=== PATIENT | male | born 1960 | race Caucasian/White ===

== ENCOUNTER 2020-11-02 08:08 | Day surgery (SDC) | payer BC ==
[2020-11-02] VITALS (9 sets, daily range): BP systolic 118–137; BP diastolic 64–89
[~2020-11-02] VITALS: Ht 170.2 cm; Wt 76.6 kg
[2020-11-02] MEDS ORDERED: iohexol 350 MG/ML 50ML vial IV ONE (08:26)
[2020-11-02] MEDS ORDERED: LIDOcaine 1% (10mg/ml)w/preservative injection 20ml MDV ONE (08:26)
[2020-11-02] MEDS ORDERED: fentaNYL/PF 50MCG/1 ML 2ML syringe ONE (08:27)
[2020-11-02] MEDS ORDERED: iohexol 350MG/ML 100ml bottle IV ONE (08:27)
[2020-11-02] MEDS ORDERED: midazolam 2 mg/2 ml injection ONE ×2 (08:27→09:21)
[2020-11-02] MEDS ORDERED: ATOR20TA PO (08:29)
[2020-11-02] MEDS ORDERED: METF-950 PO (08:29)
[2020-11-02] MEDS ORDERED: LISI10TA27 PO (08:29)
[2020-11-02] MEDS ORDERED: MULT-1085 PO (08:29)
[2020-11-02] MEDS ORDERED: diphenhydrAMINE 25mg capsule PO PRN (08:35)
[2020-11-02] MEDS ORDERED: normal saline 1,000 ML IV SCH (08:35)
[2020-11-02 08:39] LABS: BASOPHILS # (AUTO) 0.1 X10'3 (0-0.2); BASOPHILS % (AUTO) 0.7 % (0-1); EOSINOPHILS # (AUTO) 0.2 X10'3 (0-0.9); EOSINOPHILS % (AUTO) 2.7 % (0-6); HEMATOCRIT 45.7 % (42.0-52.0); HEMOGLOBIN 15.7 g/dl (14.0-17.9); LYMPHOCYTES # (AUTO) 1.1 X10'3 (1.1-4.8); LYMPHOCYTES % (AUTO) 14.4 % (21-51); MEAN CORPUSCULAR HGB CONC 34.3 g/dL (33.0-36.5); MEAN CORPUSCULAR VOLUME 93.2 FL (78-98); MEAN PLATELET VOLUME 8.1 FL (7.4-10.4); MONOCYTES # (AUTO) 0.6 X10'3 (0-0.9); MONOCYTES % (AUTO) 7.7 % (2-12); NEUTROPHILS # (AUTO) 5.5 X10'3 (1.8-7.7); NEUTROPHILS % (AUTO) 74.5 % (42-75); PLATELET COUNT 217 X10'3 (140-440); RED CELL DISTRIBUTION WIDTH 14.9 % (11.5-14.5); WHITE BLOOD COUNT 7.4 X10'3 (4.5-11.0)
[2020-11-02 08:48] LABS: ANION GAP 6 (8-16); BLOOD UREA NITROGEN 22 MG/DL (7-18); CALCIUM 9.2 MG/DL (8.5-10.1); CHLORIDE 105 MMOL/L (99-107); GLUCOSE 104 MG/DL (70-104); MAGNESIUM 2.2 MG/DL (1.5-2.4); SODIUM 136 MMOL/L (135-145); TOTAL CARBON DIOXIDE 25.4 MMOL/L (24-32); eGFR 76 ML/MIN
[2020-11-02] MEDS ORDERED: heparin 1,000unit/ml 10ml vial 10 ML ONE (09:47)
[2020-11-02] MEDS ORDERED: HYDROcodone/acetaminophen 10/325mg tab PO PRN (10:45)
[2020-11-02] MEDS ORDERED: proCHLORperazine 10 MG/2 ml inj IV PRN (10:45)
[2020-11-02] MEDS ORDERED: HYDROcodone/acetaminophen 5mg/325mg tablet PO PRN (10:45)
[2020-11-02] MEDS ORDERED: ondansetron/PF 4mg/2ml inj IV PRN (10:45)
== END 2020-11-02 16:20 | disposition home or self-care (01) ==
LOC: SSTAY O 08:08
PROVIDERS: ATTEND Internal Medicine Cardiovascular Disease
DX: R07.9 Chest pain, unspecified (principal); I35.0 Nonrheumatic aortic (valve) stenosis; I27.20 Pulmonary hypertension, unspecified; I10 Essential (primary) hypertension; E78.5 Hyperlipidemia, unspecified; E11.9 Type 2 diabetes mellitus without complications; F17.220 Nicotine dependence, chewing tobacco, uncomplicated; Z79.899 Other long term (current) drug therapy; Z79.84 Long term (current) use of oral hypoglycemic drugs
CPT/HCPCS: 36415; 80048; 82948; 83735; 85025; 85610; 93005; 93460; 99152; 99153; C1760; C1769; C1894; J1644; J2001; J2250; J3010; J7030; Q0163; Q9967; A4620; C1751

== ENCOUNTER 2020-11-30 09:57 | Outpatient (CLI) | payer BC ==
[~2020-11-30 09:57] MED LIST: ATOR20TA PO; IODIXANOL 320 MG/ML 150ml INFUS..BTL IV ONE; LISI10TA27 PO; METF-950 PO; MULT-1085 PO
[2020-11-30 10:33] LABS: BASOPHILS # (AUTO) 0.1 X10'3 (0-0.2); EOSINOPHILS # (AUTO) 0.2 X10'3 (0-0.9); EOSINOPHILS % (AUTO) 3.2 % (0-6); HEMOGLOBIN 15.8 g/dl (14.0-17.9); LYMPHOCYTES % (AUTO) 14.9 % (21-51); MEAN CORPUSCULAR HGB CONC 34.3 g/dL (33.0-36.5); MEAN CORPUSCULAR VOLUME 93.4 FL (78-98); MEAN PLATELET VOLUME 8.2 FL (7.4-10.4); MONOCYTES # (AUTO) 0.6 X10'3 (0-0.9); MONOCYTES % (AUTO) 8.6 % (2-12); NEUTROPHILS # (AUTO) 5.1 X10'3 (1.8-7.7); NEUTROPHILS % (AUTO) 72.3 % (42-75); PLATELET COUNT 221 X10'3 (140-440); RED BLOOD COUNT 4.92 X10'6 (4.70-6.10)
[2020-11-30 10:45] LABS: PARTIAL THROMBOPLASTIN TIME 27 SECONDS (22-32)
[2020-11-30 10:46] LABS: ALANINE AMINOTRANSFERASE 33 U/L (12-78); ALKALINE PHOSPHATASE 67 IU/L (46-116); ANION GAP 6 (8-16); ASPARTATE AMINO TRANSFERASE 29 U/L (10-37); BILIRUBIN,TOTAL 0.9 MG/DL (0.1-1.0); BLOOD UREA NITROGEN 19 MG/DL (7-18); BUN/CREATININE RATIO 19.4 (5.4-32.0); CHLORIDE 106 MMOL/L (99-107); CREATININE 0.98 MG/DL (0.60-1.10); GLUCOSE 78 MG/DL (70-104); SODIUM 139 MMOL/L (135-145); TOTAL CARBON DIOXIDE 26.8 MMOL/L (24-32); TOTAL PROTEIN 7.9 G/DL (6.4-8.2); eGFR 78 ML/MIN
== END 2020-11-30 23:59 | disposition home or self-care (01) ==
LOC: RT 09:57
PROVIDERS: ATTEND Internal Medicine Cardiovascular Disease
DX: I51.7 Cardiomegaly (principal); I35.1 Nonrheumatic aortic (valve) insufficiency; Z20.822 Contact with and (suspected) exposure to COVID-19
CPT/HCPCS: 36415; 71275; 74174; 80053; 85025; 85610; 85730; 94010; 94727; 94729; Q9967; U0003

== ENCOUNTER 2020-12-10 13:08 | Outpatient (CLI) | payer BC ==
[~2020-12-10] VITALS: Ht 170.2 cm; Wt 75.4 kg
[~2020-12-10 13:08] MED LIST changes: -IODIXANOL 320 MG/ML 150ml INFUS..BTL IV ONE
[2020-12-10 16:38] VITALS: BP 131/89
--- NOTE | 2020-12-10 16:39 | NUR ---
Patient and his son were in the [facility]AV[facility] clinic today to consult with Dr. Fermin and Dr. Pearson. KCQ12 completed. Walk test completed. Vital signs measured. Patient education reviewed and questions answered.
== END 2020-12-10 23:59 | disposition home or self-care (01) ==
LOC: TAVR 13:08
PROVIDERS: ATTEND Internal Medicine Cardiovascular Disease
DX: I35.0 Nonrheumatic aortic (valve) stenosis (principal); R06.02 Shortness of breath; I65.29 Occlusion and stenosis of unspecified carotid artery

== ENCOUNTER 2020-12-23 08:44 | Inpatient (IN) | payer BC ==
[2020-12-16 10:51] LABS: BASOPHILS % (AUTO) 0.7 % (0-1); EOSINOPHILS # (AUTO) 0.2 X10'3 (0-0.9); EOSINOPHILS % (AUTO) 3.2 % (0-6); LYMPHOCYTES # (AUTO) 1.1 X10'3 (1.1-4.8); LYMPHOCYTES % (AUTO) 17.3 % (21-51); MEAN CORPUSCULAR HEMOGLOBIN 32.7 PG (27.0-31.0); MEAN CORPUSCULAR HGB CONC 34.5 g/dL (33.0-36.5); MEAN CORPUSCULAR VOLUME 94.8 FL (78-98); MEAN PLATELET VOLUME 7.9 FL (7.4-10.4); MONOCYTES # (AUTO) 0.6 X10'3 (0-0.9); MONOCYTES % (AUTO) 10.5 % (2-12); NEUTROPHILS # (AUTO) 4.2 X10'3 (1.8-7.7); NEUTROPHILS % (AUTO) 68.3 % (42-75); PRE OP HEMATOCRIT 45.8 % (42.0-52.0); PRE OP HEMOGLOBIN 15.8 g/dL (14.0-17.9); PRE OP PLATELET COUNT 228 X10'3 (140-440); RED BLOOD COUNT 4.83 X10'6 (4.70-6.10); RED CELL DISTRIBUTION WIDTH 13.2 % (11.5-14.5)
[2020-12-16 10:51] LABS: CLARITY,URINE CLEAR (Clear); COLOR,URINE YELLOW (Yellow); GLUCOSE, URINE 500 mg/dl (Neg); KETONES,URINE NEGATIVE (Neg); LEUKOCYTE ESTERASE ,URINE NEGATIVE (Neg); NITRITES, URINE NEGATIVE (Neg); OCCULT BLOOD,URINE NEGATIVE (Neg); PROTEIN,URINE NEGATIVE (Neg); UROBILINOGEN,URINE 0.2 E.U/dL (0.2-1.0)
[2020-12-16 11:01] LABS: PRE OP PROTIME 10.7 SECONDS (9.0-12.0)
[2020-12-16 11:04] LABS: UA COLLECTION TYPE CLN CATCH MIDSTREAM
[2020-12-16 11:05] LABS: ALBUMIN/GLOBULIN RATIO 1.1 (1.1-1.5); ALKALINE PHOSPHATASE 69 IU/L (46-116); BLOOD UREA NITROGEN 21 MG/DL (7-18); BUN/CREATININE RATIO 21.6 (5.4-32.0); CALCIUM 8.6 MG/DL (8.5-10.1); CHLORIDE 104 MMOL/L (99-107); CREATININE 0.97 MG/DL (0.60-1.10); PRE OP ALT 32 U/L (30-65); PRE OP ANION GAP 11 (8-16); PRE OP AST 31 U/L (10-37); PRE OP BILIRUB, TOTAL 0.8 MG/DL (0.0-1.0); PRE OP GLUCOSE 85 MG/DL (70-104); PRE OP POTASSIUM 4.1 MMOL/L (3.4-5.1); PRE OP SODIUM 139 MMOL/L (135-145); TOTAL CARBON DIOXIDE 24.1 MMOL/L (24-32); TOTAL PROTEIN 7.8 G/DL (6.4-8.2); eGFR 79 ML/MIN
[2020-12-16 13:27] LABS: ABG HCO3 20.9 mmol/L (22.0-26.0); ABG OXYGEN SATURATION 97.8 % (94-97); ABG PCO2 (T) 31.2 mmHg (35.0-48.0); ALLEN'S TEST POSITIVE; FCOHb 0.5 % (0.0-3.9); FMetHb 0.2 % (0.0-1.5); FO2Hb 97.1 % (94-97); TOTAL HEMOGLOBIN 16.2 G/dl (14.0-18.0)
[~2020-12-23] VITALS: Ht 170.2 cm; Wt 75.9 kg
[2020-12-23] VITALS (12 sets, daily range): BP systolic 98–152; BP diastolic 50–86
[~2020-12-23 08:44] MED LIST changes: +LORazepam 2 mg/ml vial IV PRN; -MULT-1085 PO; +ceFAZolin 1000mg inj ONE; +cefazolin/dext.iso 2gm/100ml 100 ML IV ONE; +dextrose 50%-water 50ml dispensing syringe IV PRN; +famotidine 20mg tablet PO ONE; +gabapentin 400mg capsule PO ONE; +insulin regular, human inj. 100 UNITS in normal saline 100ml IV IV SCH; +metoprolol tartrate 12.5mg (1/2 tablet) PO ONE; +mupirocin 2% nasal ointment 1gm UD NS ONE; +ringers solution, lacted 1,000 ML IV SCH; +vancomycin 1,500 MG in NS 300ml IV soln IV ONE
[2020-12-23] MEDS ORDERED: albumin (Human) 5% 250ml BOTTLE IV ONE (12:00)
[2020-12-23] MEDS ORDERED: nitroGLYCERIN in D5W 50mg/250ml (Tridil) infusion IV ONE (12:00)
[2020-12-23] MEDS ORDERED: INSULIN R 100 UNIT in NS 100ML (1 UNIT/1 ML) BAG IV ONE (12:00)
[2020-12-23] MEDS ORDERED: DOPamine/D5W 400mg/250ml bag IV ONE (12:00)
[2020-12-23] MEDS ORDERED: aminocaproic acid 250 MG/1 ML inj. ONE ×2 (12:00→13:00)
[2020-12-23] MEDS ORDERED: niCARDipine in NS 40mg/200ml (0.2mg/ml) IVPB IV ONE (12:00)
[2020-12-23] MEDS ORDERED: protamine sulf. 10mg/ml inj. IV ONE (12:00)
[2020-12-23] MEDS ORDERED: isoflurane 100ml inhalation liquid IH ONE (12:00)
[2020-12-23] MEDS ORDERED: MIDAZolam 1mg/ml 10ml vial ONE (12:03)
[2020-12-23] MEDS ORDERED: SUFENTANIL CITRATE 50 MCG/ML 2ml ampule IV ONE (12:20)
[2020-12-23] MEDS ORDERED: sodium bicarbonate (8.4%) 1 mEq/ml syringe ONE (13:00)
[2020-12-23] MEDS ORDERED: albumin (human) 25% 100 ML IV solution IV ONE (13:00)
[2020-12-23] MEDS ORDERED: magnesium sulf 1 GM/2 ML ONE (13:00)
[2020-12-23] MEDS ORDERED: LIDOcaine 2% (20 mg/ml) 5ml cardiac syringe ONE (13:00)
[2020-12-23] MEDS ORDERED: heparin 1,000 units/ml 10ml inj ONE (13:00)
[2020-12-23] MEDS ORDERED: methylPREDNISolone sod succ 1000mg vial ONE (13:00)
[2020-12-23] MEDS ORDERED: heparin 10,000 units/1 ML INJ ONE (13:00)
[2020-12-23] MEDS ORDERED: potassium Cl 2 mEq/ml inj IV ONE (13:00)
[2020-12-23] MEDS ORDERED: calcium chloride 100 MG/1 ML inj IV ONE (13:00)
[2020-12-23] MEDS ORDERED: rocuronium 10mg/ml inj IV ONE ×3 (13:30→15:39)
[2020-12-23] MEDS ORDERED: LIDOcaine 2% (20mg/ml) 5ml vial ONE (13:30)
[2020-12-23] MEDS ORDERED: 0.9 % SODIUM CHLORIDE 10 ML VIAL ONE ×3 (13:30→15:20)
[2020-12-23] MEDS ORDERED: propofol inj 20 ML IV ONE (13:30)
[2020-12-23] MEDS ORDERED: LIDOcaine 2% 5ml jelly ONE (13:30)
[2020-12-23] MEDS ORDERED: dexamethasone sod phosphate 4mg/ml inj. ONE ×2 (13:30→15:21)
[2020-12-23] MEDS ORDERED: ondansetron/PF 4mg/2ml inj ONE ×2 (13:30→15:21)
[2020-12-23] MEDS ORDERED: midazolam 1 mg/ML 2ml injection IV ONE (13:35)
[2020-12-23] MEDS ORDERED: fentaNYL/PF 50MCG/1 ML 2ML syringe IV PRN (13:35)
[2020-12-23] MEDS ORDERED: midazolam 100mg in NS 100ml 100 ML IV PRN (13:35)
[2020-12-23] MEDS ORDERED: FENTANYL-0.9 % NACL/PF 100 ML IV PRN (13:35)
[2020-12-23 13:48] LABS: ABG BASE EXCESS 1.3 mmol/L (-2.0-2.0); ABG OXYGEN SATURATION 99.4 % (94-97); ABG PCO2 41.9 mmHg (35.0-48.0); ABG PO2 246.7 mmHg (75.0-100.0); CL (ABG) 105 mmol/L (98-110); FCOHb 0.3 % (0.0-3.9); FMetHb 0.3 % (0.0-1.5); FO2Hb 98.8 % (94-97); GLUCOSE (ABG) 98 mg/dl (70-105); IONIZED CA (ABG) 0.97 mmol/L (1.10-1.43); K (ABG) 4.8 mmol/L (3.5-5.0)
[2020-12-23 14:12] LABS: ABG BASE EXCESS VENOUS -0.1 mmol/L; ABG HCO3 VENOUS 25.9 mmol/L; ABG PCO2 VENOUS 47.6 mmHg; CL (ABG) 104 mmol/L (98-110); FCOHb VENOUS 0.6 %; FHHb VENOUS 12.6 %; FMetHb VENOUS 0.3 %; FO2Hb VENOUS 86.5 %; GLUCOSE (ABG) 103 mg/dl (70-105); IONIZED CA (ABG) 1.01 mmol/L (1.10-1.43); K (ABG) 4.4 mmol/L (3.5-5.0); TOTAL HEMOGLOBIN 11.4 G/dl (14.0-18.0)
[2020-12-23 14:53] LABS: ABG BASE EXCESS 3.2 mmol/L (-2.0-2.0); ABG HCO3 27.3 mmol/L (22.0-26.0); ABG OXYGEN SATURATION 99.3 % (94-97); ABG PCO2 39.3 mmHg (35.0-48.0); ABG PO2 254.9 mmHg (75.0-100.0); CL (ABG) 103 mmol/L (98-110); FCOHb 0.3 % (0.0-3.9); FMetHb 0.3 % (0.0-1.5); FO2Hb 98.7 % (94-97); GLUCOSE (ABG) 106 mg/dl (70-105); IONIZED CA (ABG) 1.19 mmol/L (1.10-1.43); K (ABG) 4.2 mmol/L (3.5-5.0); TOTAL HEMOGLOBIN 10.4 G/dl (14.0-18.0)
[2020-12-23 15:16] LABS: ABG BASE EXCESS 1.2 mmol/L (-2.0-2.0); ABG HCO3 24.3 mmol/L (22.0-26.0); ABG OXYGEN SATURATION 99.5 % (94-97); CL (ABG) 106 mmol/L (98-110); FCOHb 0.3 % (0.0-3.9); FMetHb 0.3 % (0.0-1.5); FO2Hb 98.9 % (94-97); GLUCOSE (ABG) 123 mg/dl (70-105); IONIZED CA (ABG) 1.15 mmol/L (1.10-1.43); K (ABG) 4.2 mmol/L (3.5-5.0); TOTAL HEMOGLOBIN 10.1 G/dl (14.0-18.0)
[2020-12-23] MEDS ORDERED: ceFAZolin 1000mg inj ONE (15:20)
[2020-12-23 15:21] LABS: ACTIVATED CLOTTING TIME 133 SEC (101-148)
[2020-12-23] MEDS ORDERED: albumin (Human) 5% 250ml 250 ML IV ONE (15:27)
[2020-12-23] MEDS ORDERED: ondansetron/PF 4mg/2ml inj IV PRN (16:00)
[2020-12-23] MEDS ORDERED: bisacodyl 10mg suppository rectal RC PRN (16:00)
[2020-12-23] MEDS ORDERED: normal saline 250ml IV soln 250 ML IV PRN (16:00)
[2020-12-23] MEDS ORDERED: magnesium 4gm in 100ml NS 100 ML IV PRN (16:00)
[2020-12-23] MEDS ORDERED: Neutra Phos packet PO PRN (16:00)
[2020-12-23] MEDS ORDERED: potassium CL 10mEq/100ml bag 100 ML IV PRN (16:00)
[2020-12-23] MEDS ORDERED: sodium phosphate inj. 30 MMOL in dextrose 5%-water 250 ML IV PRN (16:00)
[2020-12-23] MEDS ORDERED: niCARDipine-NS 40mg/200ml IVPB 200 ML IV PRN (16:00)
[2020-12-23] MEDS ORDERED: potassium Cl 40MEQ/250ML bag 250 ML IV PRN (16:00)
[2020-12-23] MEDS ORDERED: potassium Cl 40MEQ/1/2NS 520ml 520 ML IV PRN (16:00)
[2020-12-23] MEDS ORDERED: pantoprazole 40 MG vial IV ONE (16:00)
[2020-12-23] MEDS ORDERED: DOPamine 400mg/D5W 250ml 250 ML IV PRN (16:00)
[2020-12-23] MEDS ORDERED: magnesium citrate 296ml oral solution PO PRN (16:00)
[2020-12-23] MEDS ORDERED: Insulin Reg/NS 100units/100mL 100 ML IV SCH (16:00)
[2020-12-23] MEDS ORDERED: sodium phosphate inj. 15 MMOL in dextrose 5%-water 250 ML IV PRN (16:00)
[2020-12-23] MEDS ORDERED: insulin glargine (Lantus) pen - multi-dose SQ PRN (16:00)
[2020-12-23] MEDS ORDERED: morphine 4 MG/ML inj SYRINge IV PRN (16:00)
[2020-12-23] MEDS ORDERED: mineral oil 133ml enema RC PRN (16:00)
[2020-12-23] MEDS ORDERED: magnesium hydroxide 30ml (MOM) UD suspension PO PRN (16:00)
[2020-12-23] MEDS ORDERED: nitroGLYCERIN-Tridil 50MG/D5W 250 ML IV PRN (16:00)
[2020-12-23] MEDS ORDERED: dextrose 50%-water 50ml dispensing syringe IV PRN (16:00)
[2020-12-23] MEDS ORDERED: sodium chloride 0.45% 1,000 ML IV SCH (16:00)
[2020-12-23] MEDS ORDERED: acetaminophen 325mg tablet PO PRN ×2 (16:00)
[2020-12-23] MEDS ORDERED: magnesium 2GM in 50ml NS 50 ML IV PRN (16:00)
[2020-12-23] MEDS ORDERED: metoclopramide 5 mg/ml inj IV PRN (16:00)
[2020-12-23] MEDS ORDERED: potassium Cl 20 mEq SR tablet PO PRN (16:00)
[2020-12-23] MEDS ORDERED: albumin (Human) 5% 250ml 250 ML IV PRN (16:00)
--- NOTE | 2020-12-23 16:15 | NUR ---
Received to room 2007, accompanied by MDs and surgical crew. Placed on ventilator, to site monitor, arterial line and PA line pressure monitored. Chest tubes to suction at 20 cm. Nichols cath to gravity drainage. Dressings are dry and intact. See assessment record. All vasoactive drugs are infusing via central line.
--- NOTE | 2020-12-23 16:20 | NUR ---
Nutrition consult: Pt s/p AVR today. Pt would benefit from protein education once stable. Will continue to follow. Addendum: 12/23/20 at [address] Amended: Links added.
[2020-12-23 16:51] LABS: ABG BASE EXCESS -0.8 mmol/L (-2.0-2.0); ABG HCO3 22.9 mmol/L (22.0-26.0); ABG OXYGEN SATURATION 99.2 % (94-97); ABG PCO2 (T) 33.5 mmHg (35.0-48.0); ABG PO2 (T) 249.7 mmHg (75.0-100.0); FCOHb 0.3 % (0.0-3.9); FMetHb 0.6 % (0.0-1.5); FO2Hb 98.3 % (94-97); PATIENT TEMPERATURE 35.9; RESPIRATORY RATE 12 b/min; TIDAL VOLUME 600 mL; TOTAL HEMOGLOBIN 14.4 G/dl (14.0-18.0)
[2020-12-23] MEDS: ceFAZolin/D5W- 1GM premix 50 ML IV SCH (17:28)
[2020-12-23 17:40] LABS: BASOPHILS % (AUTO) 0.2 % (0-1); EOSINOPHILS # (AUTO) 0.1 X10'3 (0-0.9); EOSINOPHILS % (AUTO) 0.4 % (0-6); HEMATOCRIT 40.5 % (42.0-52.0); HEMOGLOBIN 13.7 g/dl (14.0-17.9); LYMPHOCYTES # (AUTO) 0.7 X10'3 (1.1-4.8); LYMPHOCYTES % (AUTO) 4.9 % (21-51); MEAN CORPUSCULAR HEMOGLOBIN 32.5 PG (27.0-31.0); MEAN CORPUSCULAR HGB CONC 33.9 g/dL (33.0-36.5); MEAN CORPUSCULAR VOLUME 95.9 FL (78-98); MEAN PLATELET VOLUME 8.3 FL (7.4-10.4); MONOCYTES # (AUTO) 0.6 X10'3 (0-0.9); MONOCYTES % (AUTO) 4.2 % (2-12); NEUTROPHILS # (AUTO) 13.6 X10'3 (1.8-7.7); NEUTROPHILS % (AUTO) 90.3 % (42-75); PLATELET COUNT 134 X10'3 (140-440); RED BLOOD COUNT 4.22 X10'6 (4.70-6.10); RED CELL DISTRIBUTION WIDTH 13.5 % (11.5-14.5)
[2020-12-23 17:43] LABS: PARTIAL THROMBOPLASTIN TIME 28 SECONDS (22-32)
[2020-12-23 17:44] LABS: ALANINE AMINOTRANSFERASE 23 U/L (12-78); ALBUMIN 3.7 G/DL (3.4-5.0); ALBUMIN/GLOBULIN RATIO 1.7 (1.1-1.5); ALKALINE PHOSPHATASE 42 IU/L (46-116); ANION GAP 10 (8-16); ASPARTATE AMINO TRANSFERASE 41 U/L (10-37); BILIRUBIN,TOTAL 1.4 MG/DL (0.1-1.0); BLOOD UREA NITROGEN 16 MG/DL (7-18); BUN/CREATININE RATIO 17.6 (5.4-32.0); CALCIUM 7.8 MG/DL (8.5-10.1); CHLORIDE 107 MMOL/L (99-107); CREATININE 0.91 MG/DL (0.60-1.10); GLUCOSE 167 MG/DL (70-104); MAGNESIUM 2.5 MG/DL (1.5-2.4); PHOSPHORUS 2.6 MG/DL (2.3-4.5); POTASSIUM 3.9 MMOL/L (3.5-5.1); SODIUM 141 MMOL/L (135-145); TOTAL PROTEIN 5.9 G/DL (6.4-8.2); eGFR 85 ML/MIN
--- NOTE | 2020-12-23 18:21 | NUR ---
Problems reprioritized. Patient report given, questions answered & plan of care reviewed with Zahraa MANZO.
--- NOTE | 2020-12-23 18:25 | NUR ---
Patient in room CICU 2006. I have received report from Yoandy MANZO and had the opportunity to ask questions and assume patient care.
[2020-12-23] MEDS: morphine 4 MG/ML inj SYRINge IV PRN ×2 (18:42→23:13)
[2020-12-23] MEDS: potassium Cl 20mEq/100mL bag 100 ML IV PRN ×3 (19:56→21:56)
[2020-12-23] MEDS: sennosides/docusate sodium tablet PO SCH (20:59)
[2020-12-23] MEDS: vancomycin/NS 1 GM ADD-VANTAGE 250 ML IV SCH (21:00)
[2020-12-23] MEDS: gabapentin 300mg capsule PO SCH (21:00)
[2020-12-23] MEDS: atorvastatin 10mg tablet PO SCH (21:00)
[2020-12-23] MEDS: mupirocin 2% nasal ointment 1gm UD NS SCH (21:00)
[2020-12-23] MEDS: HYDROcodone/acetaminophen 10/325mg tab PO PRN (22:12)
[2020-12-23 22:28] LABS: BASOPHILS % (AUTO) 0 % (0-1); EOSINOPHILS % (AUTO) 0 % (0-6); HEMATOCRIT 36.3 % (42.0-52.0); HEMOGLOBIN 12.6 g/dl (14.0-17.9); LYMPHOCYTES # (AUTO) 0.4 X10'3 (1.1-4.8); LYMPHOCYTES % (AUTO) 2.8 % (21-51); MEAN CORPUSCULAR HEMOGLOBIN 33.2 PG (27.0-31.0); MEAN CORPUSCULAR HGB CONC 34.6 g/dL (33.0-36.5); MEAN CORPUSCULAR VOLUME 96.1 FL (78-98); MEAN PLATELET VOLUME 8.1 FL (7.4-10.4); MONOCYTES # (AUTO) 0.4 X10'3 (0-0.9); MONOCYTES % (AUTO) 3.1 % (2-12); NEUTROPHILS # (AUTO) 13.1 X10'3 (1.8-7.7); NEUTROPHILS % (AUTO) 94.1 % (42-75); PLATELET COUNT 114 X10'3 (140-440); RED BLOOD COUNT 3.78 X10'6 (4.70-6.10); RED CELL DISTRIBUTION WIDTH 13.4 % (11.5-14.5); WHITE BLOOD COUNT 13.9 X10'3 (4.5-11.0)
[2020-12-23 22:34] LABS: ALBUMIN 3.7 G/DL (3.4-5.0); ANION GAP 10 (8-16); BLOOD UREA NITROGEN 16 MG/DL (7-18); BUN/CREATININE RATIO 14.8 (5.4-32.0); CALCIUM 7.8 MG/DL (8.5-10.1); CHLORIDE 109 MMOL/L (99-107); CREATININE 1.08 MG/DL (0.60-1.10); GLUCOSE 100 MG/DL (70-104); MAGNESIUM 2.5 MG/DL (1.5-2.4); PHOSPHORUS 3.1 MG/DL (2.3-4.5); POTASSIUM 4.9 MMOL/L (3.5-5.1); SODIUM 142 MMOL/L (135-145); eGFR 70 ML/MIN
[2020-12-24] VITALS (24 sets, daily range): BP systolic 103–146; BP diastolic 59–90
[2020-12-24] MEDS: ceFAZolin/D5W- 1GM premix 50 ML IV SCH ×4 (00:10→23:41)
[2020-12-24 00:58] LABS: ABG BASE EXCESS -4.9 mmol/L (-2.0-2.0); ABG HCO3 19.3 mmol/L (22.0-26.0); ABG OXYGEN SATURATION 98.4 % (94-97); ABG PCO2 (T) 33.9 mmHg (35.0-48.0); FCOHb 0.3 % (0.0-3.9); FMetHb 0.3 % (0.0-1.5); FO2Hb 97.8 % (94-97); PATIENT TEMPERATURE 37.3; PEEP 5 cm H2O
--- NOTE | 2020-12-24 01:45 | NUR ---
Pt extubated to 4LPM O2 nasal cannula at 0115, strong cough, no stridor present, and clear breath sounds bilaterally. He was able to say his name and was oriented to where he was. Pt oriented to room, call light, and plan of care. Able to titrate O2 down to 2LPM and pt still sating in the high 90's. Educated pt on sternal precautions and use of heart pillow for splinting. Also educated pt on the importance of deep breathing and coughing. Pt given oral swab with water on it and had a good swallow without coughing. Pt currently sleeping comfortably with the TV on.
[2020-12-24] MEDS: HYDROcodone/acetaminophen 10/325mg tab PO PRN ×5 (03:14→23:41)
[2020-12-24 04:42] LABS: BASOPHILS % (AUTO) 0.1 % (0-1); EOSINOPHILS % (AUTO) 0 % (0-6); HEMOGLOBIN 12.8 g/dl (14.0-17.9); LYMPHOCYTES # (AUTO) 0.4 X10'3 (1.1-4.8); LYMPHOCYTES % (AUTO) 2.9 % (21-51); MEAN CORPUSCULAR HEMOGLOBIN 32.4 PG (27.0-31.0); MEAN CORPUSCULAR HGB CONC 33.6 g/dL (33.0-36.5); MEAN CORPUSCULAR VOLUME 96.3 FL (78-98); MEAN PLATELET VOLUME 8.3 FL (7.4-10.4); MONOCYTES # (AUTO) 0.5 X10'3 (0-0.9); MONOCYTES % (AUTO) 3.3 % (2-12); NEUTROPHILS # (AUTO) 13.1 X10'3 (1.8-7.7); NEUTROPHILS % (AUTO) 93.7 % (42-75); PLATELET COUNT 106 X10'3 (140-440); RED BLOOD COUNT 3.94 X10'6 (4.70-6.10); RED CELL DISTRIBUTION WIDTH 13.6 % (11.5-14.5)
[2020-12-24 04:48] LABS: PARTIAL THROMBOPLASTIN TIME 26 SECONDS (22-32)
[2020-12-24 04:50] LABS: ALANINE AMINOTRANSFERASE 25 U/L (12-78); ALBUMIN 3.7 G/DL (3.4-5.0); ALBUMIN/GLOBULIN RATIO 1.4 (1.1-1.5); ALKALINE PHOSPHATASE 43 IU/L (46-116); ANION GAP 10 (8-16); ASPARTATE AMINO TRANSFERASE 38 U/L (10-37); BILIRUBIN,TOTAL 0.8 MG/DL (0.1-1.0); BLOOD UREA NITROGEN 16 MG/DL (7-18); BUN/CREATININE RATIO 15.5 (5.4-32.0); CALCIUM 8.1 MG/DL (8.5-10.1); CHLORIDE 108 MMOL/L (99-107); CREATININE 1.03 MG/DL (0.60-1.10); GLUCOSE 113 MG/DL (70-104); MAGNESIUM 2.3 MG/DL (1.5-2.4); PHOSPHORUS 4.5 MG/DL (2.3-4.5); POTASSIUM 4.3 MMOL/L (3.5-5.1); SODIUM 142 MMOL/L (135-145); TOTAL CARBON DIOXIDE 24.1 MMOL/L (24-32); TOTAL PROTEIN 6.3 G/DL (6.4-8.2); eGFR 74 ML/MIN
--- NOTE | 2020-12-24 05:45 | NUR ---
pt continuing to do well. Pain well managed with norco. Continuing to educate pt on deep breathing and coughing along with sternal precautions. Pt receptive to education. Pt tolerating PO liquids well, no nausea.
[2020-12-24] MEDS: morphine 4 MG/ML inj SYRINge IV PRN (05:56)
--- NOTE | 2020-12-24 06:34 | NUR ---
Problems reprioritized. Patient report given, questions answered & plan of care reviewed with Yoandy RN & Juan J RN.
[2020-12-24] MEDS ORDERED: lisinopril 10 MG tablet PO ONE (07:25)
[2020-12-24] MEDS: sennosides/docusate sodium tablet PO SCH ×2 (07:59→19:28)
[2020-12-24] MEDS: aspirin 325mg tablet, delayed-release (Ecotrin) PO SCH (07:59)
[2020-12-24] MEDS ORDERED: metoprolol tartrate 12.5mg (1/2 tablet) PO SCH (08:00)
[2020-12-24] MEDS ORDERED: dextrose 50%-water 50ml dispensing syringe IV PRN ×2 (08:05)
[2020-12-24] MEDS ORDERED: dextrose ORAL solution 15 GM/59 ML bottle PO PRN ×2 (08:05)
[2020-12-24] MEDS ORDERED: glucagon, human recombinant 1mg kit SUBCUT PRN (08:05)
[2020-12-24] MEDS: metoprolol tartrate 25mg tablet PO SCH ×2 (08:07→19:28)
[2020-12-24] MEDS: gabapentin 300mg capsule PO SCH ×3 (08:08→20:58)
[2020-12-24] MEDS: mupirocin 2% nasal ointment 1gm UD NS SCH ×2 (08:08→19:29)
[2020-12-24] MEDS: vancomycin/NS 1 GM ADD-VANTAGE 250 ML IV SCH ×2 (08:08→19:28)
[2020-12-24] MEDS: insulin Lispro (HumaLOG) vial - multi-dose SQ SCH ×3 (08:37→19:32)
[2020-12-24 10:23] LABS: MAGNESIUM 2.7 MG/DL (1.5-2.4); POTASSIUM 4.6 MMOL/L (3.5-5.1)
--- NOTE | 2020-12-24 18:25 | NUR ---
Problems reprioritized. Patient report given, questions answered & plan of care reviewed with Simone RN.
--- NOTE | 2020-12-24 19:14 | NUR ---
Patient in room CICU 2007. I have received report from Yoandy and had the opportunity to ask questions and assume patient care.
[2020-12-24] MEDS: atorvastatin 10mg tablet PO SCH (20:57)
[2020-12-24] MEDS ORDERED: insulin glargine (Lantus) pen - multi-dose SQ SCH (21:00)
[2020-12-25] VITALS (16 sets, daily range): BP systolic 95–128; BP diastolic 56–82
[2020-12-25 04:12] LABS: ALBUMIN 3.2 G/DL (3.4-5.0); ANION GAP 6 (8-16); BLOOD UREA NITROGEN 27 MG/DL (7-18); CALCIUM 7.7 MG/DL (8.5-10.1); CHLORIDE 104 MMOL/L (99-107); GLUCOSE 150 MG/DL (70-104); MAGNESIUM 2.4 MG/DL (1.5-2.4); PHOSPHORUS 3.8 MG/DL (2.3-4.5); POTASSIUM 4.6 MMOL/L (3.5-5.1); SODIUM 136 MMOL/L (135-145); TOTAL CARBON DIOXIDE 26.3 MMOL/L (24-32); eGFR 76 ML/MIN
[2020-12-25 04:18] LABS: BASOPHILS % (AUTO) 0.1 % (0-1); EOSINOPHILS % (AUTO) 0 % (0-6); HEMATOCRIT 33.9 % (42.0-52.0); HEMOGLOBIN 11.2 g/dl (14.0-17.9); LYMPHOCYTES # (AUTO) 0.6 X10'3 (1.1-4.8); LYMPHOCYTES % (AUTO) 3.3 % (21-51); MEAN CORPUSCULAR HEMOGLOBIN 32.5 PG (27.0-31.0); MEAN CORPUSCULAR HGB CONC 33.1 g/dL (33.0-36.5); MEAN PLATELET VOLUME 8.9 FL (7.4-10.4); MONOCYTES # (AUTO) 1.3 X10'3 (0-0.9); MONOCYTES % (AUTO) 6.7 % (2-12); NEUTROPHILS # (AUTO) 16.8 X10'3 (1.8-7.7); NEUTROPHILS % (AUTO) 89.9 % (42-75); PLATELET COUNT 95 X10'3 (140-440); RED BLOOD COUNT 3.46 X10'6 (4.70-6.10); RED CELL DISTRIBUTION WIDTH 13.6 % (11.5-14.5); WHITE BLOOD COUNT 18.7 X10'3 (4.5-11.0)
--- NOTE | 2020-12-25 06:12 | NUR ---
Problems reprioritized. Patient report given, questions answered & plan of care reviewed with Yoandy.
[2020-12-25] MEDS ORDERED: potassium CL 10mEq/100ml bag 100 ML IV PRN (06:50)
[2020-12-25] MEDS ORDERED: potassium Cl 40MEQ/1/2NS 520ml 520 ML IV PRN (06:50)
[2020-12-25] MEDS ORDERED: potassium Cl 20mEq/100mL bag 100 ML IV PRN (06:50)
[2020-12-25] MEDS ORDERED: potassium Cl 40MEQ/250ML bag 250 ML IV PRN (06:50)
[2020-12-25] MEDS ORDERED: magnesium 4gm in 100ml NS 100 ML IV PRN (06:50)
[2020-12-25] MEDS ORDERED: potassium Cl 20 mEq SR tablet PO PRN (06:50)
[2020-12-25] MEDS ORDERED: magnesium 2GM in 50ml NS 50 ML IV PRN (06:50)
[2020-12-25] MEDS: mupirocin 2% nasal ointment 1gm UD NS SCH (07:39)
[2020-12-25] MEDS: sennosides/docusate sodium tablet PO SCH ×2 (07:40→20:35)
[2020-12-25] MEDS: gabapentin 300mg capsule PO SCH ×2 (07:40→12:41)
[2020-12-25] MEDS: pantoprazole 40mg Tablet.DR PO SCH (07:40)
[2020-12-25] MEDS: metoprolol tartrate 25mg tablet PO SCH ×2 (07:41→20:00)
[2020-12-25] MEDS: HYDROcodone/acetaminophen 10/325mg tab PO PRN ×3 (07:42→17:17)
[2020-12-25] MEDS: magnesium Cl slow-release 64mg tablet PO SCH ×2 (08:00→20:36)
[2020-12-25] MEDS: potassium Cl 20 mEq SR tablet PO SCH ×2 (08:00→20:00)
[2020-12-25] MEDS: aspirin 325mg tablet, delayed-release (Ecotrin) PO SCH (08:59)
[2020-12-25] MEDS: buPROPion 100mg tablet PO SCH ×3 (08:59→20:42)
[2020-12-25] MEDS: insulin Lispro (HumaLOG) vial - multi-dose SQ SCH ×2 (09:33→13:27)
--- NOTE | 2020-12-25 09:40 | NUR ---
Problems reprioritized. Patient report given, questions answered & plan of care reviewed with Lulu MANZO.
--- NOTE | 2020-12-25 10:20 | NUR ---
received report from Yoandy and Markie. Patient transferred to [facility], ambulatory with Markie and Yoandy. Patient AAOx3 in no acute distress.
--- NOTE | 2020-12-25 18:00 | NUR ---
Patient in room MED 316. I have received report from BRIANNE MANZO and had the opportunity to ask questions and assume patient care.
[2020-12-25] MEDS: atorvastatin 10mg tablet PO SCH (20:39)
[2020-12-25] MEDS ORDERED: lisinopril 10 MG tablet PO SCH (21:00)
--- NOTE | 2020-12-25 21:01 | NUR ---
CALLED ANGELY FOR BP TRENDING FROM 120/110'S SBP TO 90'S SYSTOLIC. HELD BP MEDS. STATED TO DC LISINOPRIL 10 MG, REORDER METOPROLOL 12.5 TO START IN AM Addendum: 12/25/20 at 2104 by Berenice Levine RN ALSO, RESTART LANTUS PER PROTOCOL, NOTICED IT WAS DISCONTINUED.
[2020-12-25] MEDS: insulin glargine (Lantus) pen - multi-dose SQ SCH (21:27)
[2020-12-26] MEDS: HYDROcodone/acetaminophen 10/325mg tab PO PRN ×4 (01:30→20:59)
[2020-12-26 02:00] VITALS: BP 95/67
--- NOTE | 2020-12-26 06:26 | NUR ---
Problems reprioritized. Patient report given, questions answered & plan of care reviewed with Lynn MANZO.
[2020-12-26 07:21] VITALS: BP 100/61
[2020-12-26] MEDS: pantoprazole 40mg Tablet.DR PO SCH (07:30)
[2020-12-26 07:32] LABS: BASOPHILS % (AUTO) 0.2 % (0-1); EOSINOPHILS % (AUTO) 0.3 % (0-6); HEMATOCRIT 33.4 % (42.0-52.0); HEMOGLOBIN 11.4 g/dl (14.0-17.9); LYMPHOCYTES # (AUTO) 0.8 X10'3 (1.1-4.8); LYMPHOCYTES % (AUTO) 6.9 % (21-51); MEAN CORPUSCULAR HEMOGLOBIN 33.1 PG (27.0-31.0); MEAN CORPUSCULAR HGB CONC 34.1 g/dL (33.0-36.5); MEAN CORPUSCULAR VOLUME 97.3 FL (78-98); MEAN PLATELET VOLUME 8.7 FL (7.4-10.4); MONOCYTES # (AUTO) 1.2 X10'3 (0-0.9); MONOCYTES % (AUTO) 10.1 % (2-12); NEUTROPHILS # (AUTO) 9.5 X10'3 (1.8-7.7); NEUTROPHILS % (AUTO) 82.5 % (42-75); PLATELET COUNT 87 X10'3 (140-440); RED BLOOD COUNT 3.44 X10'6 (4.70-6.10); RED CELL DISTRIBUTION WIDTH 13.5 % (11.5-14.5); WHITE BLOOD COUNT 11.5 X10'3 (4.5-11.0)
[2020-12-26 07:37] LABS: ALBUMIN 2.9 G/DL (3.4-5.0); ANION GAP 7 (8-16); BLOOD UREA NITROGEN 27 MG/DL (7-18); BUN/CREATININE RATIO 29.7 (5.4-32.0); CALCIUM 7.5 MG/DL (8.5-10.1); CHLORIDE 100 MMOL/L (99-107); CREATININE 0.91 MG/DL (0.60-1.10); GLUCOSE 104 MG/DL (70-104); POTASSIUM 4.4 MMOL/L (3.5-5.1); SODIUM 133 MMOL/L (135-145); TOTAL CARBON DIOXIDE 25.7 MMOL/L (24-32); eGFR 85 ML/MIN
[2020-12-26] MEDS: metoprolol tartrate 25mg tablet PO SCH ×2 (08:00→20:00)
[2020-12-26] MEDS: potassium Cl 20 mEq SR tablet PO SCH ×2 (08:43→20:00)
[2020-12-26] MEDS: magnesium Cl slow-release 64mg tablet PO SCH ×2 (08:43→20:00)
[2020-12-26] MEDS: aspirin 325mg tablet, delayed-release (Ecotrin) PO SCH (08:43)
[2020-12-26] MEDS: sennosides/docusate sodium tablet PO SCH ×2 (08:43→20:00)
[2020-12-26] MEDS: buPROPion 100mg tablet PO SCH ×3 (08:43→20:58)
[2020-12-26] MEDS ORDERED: ASPI-1071 PO (13:37)
[2020-12-26] MEDS ORDERED: LOP25T PO (13:37)
[2020-12-26] MEDS ORDERED: BUPR100T16 PO (13:37)
[2020-12-26] MEDS ORDERED: HYDR-3972 PO (13:37)
[2020-12-26 15:44] VITALS: BP 95/61
[2020-12-26 18:00] VITALS: BP 102/61
--- NOTE | 2020-12-26 18:15 | NUR ---
Patient in room MED 316. I have received report from Delfino MANZO and had the opportunity to ask questions and assume patient care.
[2020-12-26] MEDS: atorvastatin 10mg tablet PO SCH (20:58)
[2020-12-26] MEDS: insulin glargine (Lantus) pen - multi-dose SQ SCH (21:11)
[2020-12-26 22:00] VITALS: BP 108/65
[2020-12-27] VITALS (10 sets, daily range): BP systolic 105–163; BP diastolic 57–98
[2020-12-27] MEDS: HYDROcodone/acetaminophen 10/325mg tab PO PRN ×2 (04:56→20:07)
--- NOTE | 2020-12-27 06:24 | NUR ---
Patient in room MED 316. I have received report from melissa mccormack and had the opportunity to ask questions and assume patient care.
--- NOTE | 2020-12-27 06:24 | NUR ---
Problems reprioritized. Patient report given, questions answered & plan of care reviewed with Juan MANZO.
[2020-12-27 07:25] LABS: BLOOD UREA NITROGEN 21 MG/DL (7-18); BUN/CREATININE RATIO 23.6 (5.4-32.0); CHLORIDE 99 MMOL/L (99-107); CREATININE 0.89 MG/DL (0.60-1.10); GLUCOSE 97 MG/DL (70-104); POTASSIUM 4.6 MMOL/L (3.5-5.1); SODIUM 133 MMOL/L (135-145); eGFR 87 ML/MIN
[2020-12-27 07:29] LABS: ALBUMIN 3.1 G/DL (3.4-5.0); ANION GAP 6 (8-16); CALCIUM 7.8 MG/DL (8.5-10.1); TOTAL CARBON DIOXIDE 27.6 MMOL/L (24-32)
[2020-12-27 07:37] LABS: BASOPHILS % (AUTO) 0.3 % (0-1); EOSINOPHILS # (AUTO) 0.3 X10'3 (0-0.9); EOSINOPHILS % (AUTO) 2.4 % (0-6); HEMATOCRIT 36.1 % (42.0-52.0); HEMOGLOBIN 12.2 g/dl (14.0-17.9); LYMPHOCYTES # (AUTO) 0.6 X10'3 (1.1-4.8); LYMPHOCYTES % (AUTO) 5.6 % (21-51); MEAN CORPUSCULAR HEMOGLOBIN 32.9 PG (27.0-31.0); MEAN CORPUSCULAR HGB CONC 33.7 g/dL (33.0-36.5); MEAN CORPUSCULAR VOLUME 97.8 FL (78-98); MEAN PLATELET VOLUME 8.6 FL (7.4-10.4); MONOCYTES % (AUTO) 8.9 % (2-12); NEUTROPHILS # (AUTO) 9.3 X10'3 (1.8-7.7); NEUTROPHILS % (AUTO) 82.8 % (42-75); PLATELET COUNT 117 X10'3 (140-440); RED CELL DISTRIBUTION WIDTH 13.8 % (11.5-14.5); WHITE BLOOD COUNT 11.2 X10'3 (4.5-11.0)
[2020-12-27] MEDS: sennosides/docusate sodium tablet PO SCH ×2 (08:00→20:00)
[2020-12-27] MEDS: potassium Cl 20 mEq SR tablet PO SCH ×2 (08:00→20:00)
[2020-12-27] MEDS: magnesium Cl slow-release 64mg tablet PO SCH ×2 (08:00→20:00)
[2020-12-27] MEDS ORDERED: BUPR100T16 PO (08:22)
[2020-12-27] MEDS ORDERED: LOP25T PO (08:22)
[2020-12-27] MEDS ORDERED: ATOR20TA PO (08:22)
[2020-12-27] MEDS ORDERED: ASPI-1071 PO (08:22)
--- NOTE | 2020-12-27 08:55 | NUR ---
Page: Stroke Alert. 316 left sided droop, slurred speech, stripper preliminary equal bilat, no drift, FSBG 90. 1247
[2020-12-27] MEDS: aspirin 325mg tablet, delayed-release (Ecotrin) PO SCH (09:00)
[2020-12-27] MEDS: pantoprazole 40mg Tablet.DR PO SCH (09:00)
[2020-12-27] MEDS ORDERED: iohexol 350MG/ML 100ml bottle IV ONE (09:15)
--- NOTE | 2020-12-27 10:00 | NUR ---
accompanied pt to cat scan,with/w/o contrast,pt heidi well
[2020-12-27 11:03] LABS: CHOL/HDL RATIO 2.6 (0.00-4.99); CHOLESTEROL 95 MG/DL (0-200); HDL CHOLESTEROL 36 MG/DL (35-60); LDL CHOLESTEROL 41 MG/DL (50-100); TRIGLYCERIDES 84 MG/DL (20-135)
[2020-12-27] MEDS ORDERED: clopidogrel 300mg tablet PO ONE (12:10)
--- NOTE | 2020-12-27 15:00 | NUR ---
pt speech cont clear,with minimal facial droop, no further left hand weakness.pt is irritable with occ brief bouts of confusion, walked into bathroom ,inc of stool and urine.
--- NOTE | 2020-12-27 16:00 | NUR ---
pt to mri via w/c
--- NOTE | 2020-12-27 18:30 | NUR ---
Spoke to via telephone,follow up neuro md ordered by Dr. Fermin.She attempted the tele interview with pt ,who told he already had this done and did not need it, despite prior instructions I gave him. I reviewed mri results and bouts of confusion,prior slurred speech clearing ,minimal facial droop. 300 mg plavix po given.She stated would review MRI and give any further recommendations
--- NOTE | 2020-12-27 18:45 | NUR ---
Problems reprioritized. Patient report given, questions answered & plan of care reviewed with melissa alexander
[2020-12-27] MEDS: atorvastatin 10mg tablet PO SCH (20:07)
[2020-12-27] MEDS: insulin glargine (Lantus) pen - multi-dose SQ SCH (21:00)
--- NOTE | 2020-12-27 21:45 | NUR ---
spoke to Ruperto regarding patient status. patient had recent echocardiogram that showed some pericardial fluid. when report comes out fully MD will be notified. patient has no new s/s. rn not giving insulin to cover sugars since patient is not eating. will continue to monitor patient.
--- NOTE | 2020-12-27 22:50 | NUR ---
patient vomitted, states he feels diaphoretic. RN called charge nurse. states to monitor, neuro checks, give zofran.
--- NOTE | 2020-12-27 22:54 | NUR ---
tabs are on patient. patient forgetting rn conversation about staying in bed
[2020-12-28 02:00] VITALS: BP 122/82
[2020-12-28 06:00] VITALS: BP 99/71
--- NOTE | 2020-12-28 06:17 | NUR ---
Problems reprioritized. Patient report given, questions answered & plan of care reviewed with Anitha MANZO.
[2020-12-28 06:34] LABS: ALBUMIN 3.1 G/DL (3.4-5.0); ANION GAP 9 (8-16); BLOOD UREA NITROGEN 15 MG/DL (7-18); BUN/CREATININE RATIO 17.9 (5.4-32.0); CALCIUM 8.6 MG/DL (8.5-10.1); CHLORIDE 101 MMOL/L (99-107); CREATININE 0.84 MG/DL (0.60-1.10); GLUCOSE 106 MG/DL (70-104); POTASSIUM 4.5 MMOL/L (3.5-5.1); SODIUM 136 MMOL/L (135-145); TOTAL CARBON DIOXIDE 25.9 MMOL/L (24-32); eGFR > 90 ML/MIN
--- NOTE | 2020-12-28 06:35 | NUR ---
Patient in room MED 316. I have received report from melissa alexander and had the opportunity to ask questions and assume patient care.
[2020-12-28 07:09] LABS: BASOPHILS % (AUTO) 0.3 % (0-1); EOSINOPHILS # (AUTO) 0.4 X10'3 (0-0.9); EOSINOPHILS % (AUTO) 3.6 % (0-6); HEMATOCRIT 33.8 % (42.0-52.0); HEMOGLOBIN 11.7 g/dl (14.0-17.9); LYMPHOCYTES # (AUTO) 0.6 X10'3 (1.1-4.8); LYMPHOCYTES % (AUTO) 6.3 % (21-51); MEAN CORPUSCULAR HEMOGLOBIN 33.3 PG (27.0-31.0); MEAN CORPUSCULAR HGB CONC 34.6 g/dL (33.0-36.5); MEAN CORPUSCULAR VOLUME 96.3 FL (78-98); MEAN PLATELET VOLUME 7.9 FL (7.4-10.4); MONOCYTES # (AUTO) 0.8 X10'3 (0-0.9); MONOCYTES % (AUTO) 8.7 % (2-12); NEUTROPHILS # (AUTO) 7.8 X10'3 (1.8-7.7); NEUTROPHILS % (AUTO) 81.1 % (42-75); PLATELET COUNT 171 X10'3 (140-440); RED BLOOD COUNT 3.51 X10'6 (4.70-6.10); RED CELL DISTRIBUTION WIDTH 13.4 % (11.5-14.5); WHITE BLOOD COUNT 9.7 X10'3 (4.5-11.0)
[2020-12-28] MEDS: sennosides/docusate sodium tablet PO SCH ×2 (08:00→19:52)
[2020-12-28] MEDS ORDERED: clopidogrel 75mg tablet PO SCH (08:00)
[2020-12-28] MEDS: potassium Cl 20 mEq SR tablet PO SCH ×2 (08:00→19:41)
[2020-12-28] MEDS: magnesium Cl slow-release 64mg tablet PO SCH ×2 (08:04→19:40)
[2020-12-28] MEDS: aspirin 325mg tablet, delayed-release (Ecotrin) PO SCH (08:04)
[2020-12-28] MEDS: pantoprazole 40mg Tablet.DR PO SCH (08:04)
[2020-12-28 10:00] VITALS: BP 121/71
--- NOTE | 2020-12-28 15:23 | NUR ---
Initial: Pt s/p AVR 5 days post-op and s/p CVA yesterday, per EMR. Pt PO 50-75% on a no concentrated sweets diet. Partially meeting needs. Pending MD approval, RD recommends Mal smoothie BIDBD and Ensure Enlive with lunch to meet protein needs post-op; MD notified. Last BM 12/27 with PRN and routine bowel care available. RD industrial engineering intern visited pt at bedside to provide written and verbal high protein education. Pt provided with RD contact information. Discussed sources of protein and the importance of protein to the wound healing process. Will continue to monitor for further nutrition intervention. Recommendations: 1. Advance diet to heart healthy as medically indicated 2. Mal Smoothie BIDBD, Ensure Enlive WL, pending MD verification in the EMR 3. Routine Bowel care 4. Weekly wts Addendum: 12/28/20 at [address] Amended: Links added. Addendum: 12/28/20 at [address] PERRY agrees w/ above research program internship note.
[2020-12-28 18:00] VITALS: BP 132/76
--- NOTE | 2020-12-28 18:00 | NUR ---
Patient in room MED 316. I have received report from JOVANY Welsh and had the opportunity to ask questions and assume patient care.
[2020-12-28] MEDS: HYDROcodone/acetaminophen 10/325mg tab PO PRN (19:42)
[2020-12-28] MEDS: insulin Lispro (HumaLOG) vial - multi-dose SQ SCH (19:51)
[2020-12-28] MEDS ORDERED: warfarin 5mg tablet PO ONE (21:00)
[2020-12-28] MEDS: atorvastatin 10mg tablet PO SCH (21:40)
[2020-12-28] MEDS: insulin glargine (Lantus) pen - multi-dose SQ SCH (21:47)
[2020-12-28 22:00] VITALS: BP 136/86
[2020-12-29 02:00] VITALS: BP 113/73
[2020-12-29 06:00] VITALS: BP 124/52
--- NOTE | 2020-12-29 06:15 | NUR ---
Patient in room MED 316. I have received report from melissa Mesa and had the opportunity to ask questions and assume patient care.
[2020-12-29 07:11] LABS: BASOPHILS % (AUTO) 0.5 % (0-1); EOSINOPHILS # (AUTO) 0.4 X10'3 (0-0.9); HEMATOCRIT 34.3 % (42.0-52.0); HEMOGLOBIN 11.9 g/dl (14.0-17.9); LYMPHOCYTES # (AUTO) 1.1 X10'3 (1.1-4.8); LYMPHOCYTES % (AUTO) 12.4 % (21-51); MEAN CORPUSCULAR HEMOGLOBIN 33.8 PG (27.0-31.0); MEAN CORPUSCULAR HGB CONC 34.6 g/dL (33.0-36.5); MEAN CORPUSCULAR VOLUME 97.6 FL (78-98); MEAN PLATELET VOLUME 7.5 FL (7.4-10.4); MONOCYTES # (AUTO) 0.9 X10'3 (0-0.9); MONOCYTES % (AUTO) 9.7 % (2-12); NEUTROPHILS # (AUTO) 6.4 X10'3 (1.8-7.7); NEUTROPHILS % (AUTO) 72.4 % (42-75); PLATELET COUNT 237 X10'3 (140-440); RED BLOOD COUNT 3.51 X10'6 (4.70-6.10); RED CELL DISTRIBUTION WIDTH 13.4 % (11.5-14.5); WHITE BLOOD COUNT 8.9 X10'3 (4.5-11.0)
[2020-12-29 07:15] LABS: ALBUMIN 3.3 G/DL (3.4-5.0); ANION GAP 9 (8-16); BLOOD UREA NITROGEN 21 MG/DL (7-18); BUN/CREATININE RATIO 19.8 (5.4-32.0); CALCIUM 8.4 MG/DL (8.5-10.1); CHLORIDE 101 MMOL/L (99-107); CREATININE 1.06 MG/DL (0.60-1.10); GLUCOSE 87 MG/DL (70-104); POTASSIUM 3.8 MMOL/L (3.5-5.1); SODIUM 138 MMOL/L (135-145); TOTAL CARBON DIOXIDE 27.6 MMOL/L (24-32); eGFR 72 ML/MIN
[2020-12-29] MEDS: JUVEN Smoothie Arginine/Glut./Ca2+Bmb (Juven 19.3pkt) 240ml cup PO SCH ×4 (07:30→18:59)
[2020-12-29] MEDS: magnesium Cl slow-release 64mg tablet PO SCH ×2 (08:52→20:12)
[2020-12-29] MEDS: aspirin 81mg tablet.DR PO SCH (08:52)
[2020-12-29] MEDS: pantoprazole 40mg Tablet.DR PO SCH (08:52)
[2020-12-29] MEDS: potassium Cl 20 mEq SR tablet PO SCH ×2 (08:53→20:12)
[2020-12-29] MEDS: sennosides/docusate sodium tablet PO SCH ×2 (08:57→20:00)
[2020-12-29 09:05] LABS: MAGNESIUM 2.5 MG/DL (1.5-2.4)
[2020-12-29 10:00] VITALS: BP 126/81
[2020-12-29] MEDS: lactose-reduced food (Ensure Enlive) - 237ml bottle PO SCH (12:30)
--- NOTE | 2020-12-29 18:32 | NUR ---
Problems reprioritized. Patient report given, questions answered & plan of care reviewed with JOVANY HANDY.
[2020-12-29 20:00] VITALS: BP 112/74
[2020-12-29] MEDS: HYDROcodone/acetaminophen 10/325mg tab PO PRN (20:13)
[2020-12-29] MEDS: atorvastatin 10mg tablet PO SCH (20:13)
[2020-12-29] MEDS: insulin Lispro (HumaLOG) vial - multi-dose SQ SCH (20:18)
[2020-12-29] MEDS ORDERED: warfarin 5mg tablet PO ONE (21:00)
[2020-12-29] MEDS: insulin glargine (Lantus) pen - multi-dose SQ SCH (21:00)
--- NOTE | 2020-12-29 21:00 | NUR ---
RN did not perform 2100 Accucheck, gave dinner lispro coverage too late
[2020-12-29 22:00] VITALS: BP 131/77
--- NOTE | 2020-12-30 02:00 | NUR ---
Pt asleep, skipping 0200 V/S
--- NOTE | 2020-12-30 06:00 | NUR ---
Problems reprioritized. Patient report given, questions answered & plan of care reviewed with JOVANY Muñiz.
[2020-12-30 06:17] LABS: BASOPHILS # (AUTO) 0.1 X10'3 (0-0.2); BASOPHILS % (AUTO) 0.8 % (0-1); EOSINOPHILS # (AUTO) 0.5 X10'3 (0-0.9); EOSINOPHILS % (AUTO) 6.5 % (0-6); HEMATOCRIT 32.2 % (42.0-52.0); HEMOGLOBIN 11.1 g/dl (14.0-17.9); LYMPHOCYTES # (AUTO) 0.9 X10'3 (1.1-4.8); LYMPHOCYTES % (AUTO) 11.9 % (21-51); MEAN CORPUSCULAR HEMOGLOBIN 33.3 PG (27.0-31.0); MEAN CORPUSCULAR HGB CONC 34.5 g/dL (33.0-36.5); MEAN CORPUSCULAR VOLUME 96.6 FL (78-98); MEAN PLATELET VOLUME 7.1 FL (7.4-10.4); MONOCYTES # (AUTO) 0.9 X10'3 (0-0.9); NEUTROPHILS # (AUTO) 5.5 X10'3 (1.8-7.7); NEUTROPHILS % (AUTO) 69.8 % (42-75); PLATELET COUNT 220 X10'3 (140-440); RED BLOOD COUNT 3.34 X10'6 (4.70-6.10); RED CELL DISTRIBUTION WIDTH 13.5 % (11.5-14.5); WHITE BLOOD COUNT 7.8 X10'3 (4.5-11.0)
[2020-12-30 06:18] LABS: ALBUMIN 2.8 G/DL (3.4-5.0); ANION GAP 8 (8-16); BLOOD UREA NITROGEN 20 MG/DL (7-18); BUN/CREATININE RATIO 20.8 (5.4-32.0); CALCIUM 7.8 MG/DL (8.5-10.1); CHLORIDE 103 MMOL/L (99-107); CREATININE 0.96 MG/DL (0.60-1.10); GLUCOSE 94 MG/DL (70-104); POTASSIUM 4.4 MMOL/L (3.5-5.1); SODIUM 137 MMOL/L (135-145); TOTAL CARBON DIOXIDE 25.8 MMOL/L (24-32); eGFR 80 ML/MIN
[2020-12-30 08:00] VITALS: BP 122/69
[2020-12-30] MEDS: sennosides/docusate sodium tablet PO SCH ×2 (08:00→20:00)
[2020-12-30] MEDS: magnesium Cl slow-release 64mg tablet PO SCH ×2 (08:00→20:00)
[2020-12-30] MEDS: potassium Cl 20 mEq SR tablet PO SCH ×2 (08:00→20:00)
[2020-12-30] MEDS: pantoprazole 40mg Tablet.DR PO SCH (08:28)
[2020-12-30] MEDS: aspirin 81mg tablet.DR PO SCH (08:28)
[2020-12-30] MEDS: HYDROcodone/acetaminophen 10/325mg tab PO PRN ×2 (08:33→20:46)
[2020-12-30] MEDS: lactose-reduced food (Ensure Enlive) - 237ml bottle PO SCH (12:30)
[2020-12-30 18:00] VITALS: BP 133/71
--- NOTE | 2020-12-30 18:30 | NUR ---
Patient in room MED 316. I have received report from [facility] RN and had the opportunity to ask questions and assume patient care.
[2020-12-30] MEDS: insulin Lispro (HumaLOG) vial - multi-dose SQ SCH (19:48)
[2020-12-30] MEDS: atorvastatin 10mg tablet PO SCH (20:45)
[2020-12-30] MEDS ORDERED: warfarin 5mg tablet PO ONE (21:00)
[2020-12-30] MEDS: insulin glargine (Lantus) pen - multi-dose SQ SCH (21:56)
[2020-12-30 22:00] VITALS: BP 132/69
--- NOTE | 2020-12-31 03:38 | NUR ---
[place] documentation: I have reviewed and agree with all interventions, assessments performed and documented by Yamini MANZO.
[2020-12-31 05:56] LABS: BASOPHILS # (AUTO) 0.1 X10'3 (0-0.2); BASOPHILS % (AUTO) 0.7 % (0-1); EOSINOPHILS # (AUTO) 0.6 X10'3 (0-0.9); EOSINOPHILS % (AUTO) 7.3 % (0-6); HEMATOCRIT 31.8 % (42.0-52.0); LYMPHOCYTES # (AUTO) 1.2 X10'3 (1.1-4.8); LYMPHOCYTES % (AUTO) 15.6 % (21-51); MEAN CORPUSCULAR HEMOGLOBIN 33.2 PG (27.0-31.0); MEAN CORPUSCULAR HGB CONC 34.7 g/dL (33.0-36.5); MEAN CORPUSCULAR VOLUME 95.5 FL (78-98); MEAN PLATELET VOLUME 7.1 FL (7.4-10.4); MONOCYTES # (AUTO) 0.8 X10'3 (0-0.9); MONOCYTES % (AUTO) 9.9 % (2-12); NEUTROPHILS # (AUTO) 5.1 X10'3 (1.8-7.7); NEUTROPHILS % (AUTO) 66.5 % (42-75); PLATELET COUNT 282 X10'3 (140-440); RED BLOOD COUNT 3.33 X10'6 (4.70-6.10); RED CELL DISTRIBUTION WIDTH 13.1 % (11.5-14.5); WHITE BLOOD COUNT 7.6 X10'3 (4.5-11.0)
--- NOTE | 2020-12-31 06:12 | NUR ---
Problems reprioritized. Patient report given, questions answered & plan of care reviewed with Bryan.
[2020-12-31 06:17] LABS: ANION GAP 11 (8-16); BLOOD UREA NITROGEN 25 MG/DL (7-18); BUN/CREATININE RATIO 25.8 (5.4-32.0); CALCIUM 8.3 MG/DL (8.5-10.1); CHLORIDE 103 MMOL/L (99-107); CREATININE 0.97 MG/DL (0.60-1.10); GLUCOSE 83 MG/DL (70-104); POTASSIUM 4.2 MMOL/L (3.5-5.1); SODIUM 137 MMOL/L (135-145); TOTAL CARBON DIOXIDE 23.3 MMOL/L (24-32); eGFR 79 ML/MIN
[2020-12-31] MEDS: magnesium Cl slow-release 64mg tablet PO SCH ×2 (07:11→20:00)
[2020-12-31] MEDS: potassium Cl 20 mEq SR tablet PO SCH ×2 (07:11→20:00)
[2020-12-31] MEDS: aspirin 81mg tablet.DR PO SCH (07:11)
[2020-12-31] MEDS: sennosides/docusate sodium tablet PO SCH ×2 (07:11→20:00)
[2020-12-31] MEDS: pantoprazole 40mg Tablet.DR PO SCH (07:11)
[2020-12-31] MEDS: JUVEN Smoothie Arginine/Glut./Ca2+Bmb (Juven 19.3pkt) 240ml cup PO SCH (07:57)
[2020-12-31] MEDS: insulin Lispro (HumaLOG) vial - multi-dose SQ SCH ×2 (08:53→16:10)
--- NOTE | 2020-12-31 11:15 | NUR ---
Reassessment: Pt s/p BSS 12/[address] briana to continue regular food consistency and thin liquids d/t pt swallowing well with no s/s aspiration. Pt continues on NCS diet documented with average 50-75% PO intake recently up to 100% PO intake. Pt with 100% PO intake of Mal smoothie BIDBD and 50% PO intake of first Ensure Enlive, however pt documented to have refused Ensure WL 12/30. Overall pt meeting estimated nutrient needs with adequate protein intake to promote wound healing with combined PO intake of ONS and meals. LBM 12/29, receiving routine bowel care with PRN bowel care available last given 12/26. No further nutrition intervention warranted at this time. Will continue to follow. Recommendations: 1. Advance diet to heart healthy as medically indicated 2. Mal smoothie BIDBD, Ensure Enlive WL 3. Routine bowel care 4. Weekly wts Addendum: 12/31/20 at [address] Amended: Links added.
[2020-12-31 12:04] VITALS: BP 124/67
[2020-12-31] MEDS: lactose-reduced food (Ensure Enlive) - 237ml bottle PO SCH (13:14)
[2020-12-31 17:14] VITALS: BP 118/70
[2020-12-31 18:00] VITALS: BP 116/68
--- NOTE | 2020-12-31 18:00 | NUR ---
Patient in room MED 318. I have received report from ISAIAH MANZO and had the opportunity to ask questions and assume patient care.
[2020-12-31] MEDS ORDERED: warfarin 5mg tablet PO ONE (21:00)
[2020-12-31] MEDS ORDERED: warfarin 3mg tablet PO ONE (21:00)
[2020-12-31] MEDS: atorvastatin 10mg tablet PO SCH (21:42)
[2020-12-31] MEDS: HYDROcodone/acetaminophen 10/325mg tab PO PRN (21:43)
[2020-12-31] MEDS: insulin glargine (Lantus) pen - multi-dose SQ SCH (21:48)
[2020-12-31 22:00] VITALS: BP 118/64
[2021-01-01 02:00] VITALS: BP 123/66
--- NOTE | 2021-01-01 06:00 | NUR ---
Problems reprioritized. Patient report given, questions answered & plan of care reviewed with RED MANZO.
[2021-01-01 07:09] LABS: BASOPHILS # (AUTO) 0.1 X10'3 (0-0.2); BASOPHILS % (AUTO) 0.9 % (0-1); EOSINOPHILS # (AUTO) 0.5 X10'3 (0-0.9); EOSINOPHILS % (AUTO) 6.1 % (0-6); HEMATOCRIT 35.7 % (42.0-52.0); HEMOGLOBIN 12.3 g/dl (14.0-17.9); LYMPHOCYTES # (AUTO) 1.2 X10'3 (1.1-4.8); LYMPHOCYTES % (AUTO) 14.8 % (21-51); MEAN CORPUSCULAR HEMOGLOBIN 33.3 PG (27.0-31.0); MEAN CORPUSCULAR HGB CONC 34.5 g/dL (33.0-36.5); MEAN CORPUSCULAR VOLUME 96.5 FL (78-98); MONOCYTES # (AUTO) 0.7 X10'3 (0-0.9); MONOCYTES % (AUTO) 8.7 % (2-12); NEUTROPHILS # (AUTO) 5.5 X10'3 (1.8-7.7); NEUTROPHILS % (AUTO) 69.5 % (42-75); PLATELET COUNT 365 X10'3 (140-440); RED CELL DISTRIBUTION WIDTH 13.7 % (11.5-14.5)
[2021-01-01 07:29] LABS: ALBUMIN 3.1 G/DL (3.4-5.0); ANION GAP 8 (8-16); BLOOD UREA NITROGEN 27 MG/DL (7-18); CALCIUM 8.5 MG/DL (8.5-10.1); CHLORIDE 103 MMOL/L (99-107); GLUCOSE 93 MG/DL (70-104); SODIUM 139 MMOL/L (135-145); eGFR 76 ML/MIN
[2021-01-01] MEDS: potassium Cl 20 mEq SR tablet PO SCH (08:00)
[2021-01-01] MEDS: magnesium Cl slow-release 64mg tablet PO SCH (08:00)
[2021-01-01] MEDS: JUVEN Smoothie Arginine/Glut./Ca2+Bmb (Juven 19.3pkt) 240ml cup PO SCH (08:16)
[2021-01-01] MEDS: pantoprazole 40mg Tablet.DR PO SCH (08:17)
[2021-01-01] MEDS: sennosides/docusate sodium tablet PO SCH (08:17)
[2021-01-01] MEDS: aspirin 81mg tablet.DR PO SCH (08:17)
[2021-01-01] MEDS: HYDROcodone/acetaminophen 10/325mg tab PO PRN (08:18)
[2021-01-01 09:53] LABS: MAGNESIUM 2.3 MG/DL (1.5-2.4)
[2021-01-01] MEDS ORDERED: WARF4TAB69 PO (10:05)
[2021-01-01] MEDS ORDERED: HYDR-3965 PO (11:09)
--- NOTE | 2021-01-01 11:55 | NUR ---
Discharge instructions and education reviewed with patient. All questions from patient and his son answered. IV taken out with cannula intact and no residual bleeding. Medications electronically sent to pharmacy and hard copy prescription given for [place]. Lab slip given for patient to return tomorrow for INR. Patient wheeled out in wheelchair stable with all belongings and son at his side.
== END 2021-01-01 11:58 | disposition home or self-care (01) | DRG 266 ==
LOC: PAS IN 08:44 → CICU 2S 15:50 → MED 3N 12-25 10:19
PROVIDERS: ADMIT Thoracic Surgery (Cardiothoracic Vascular Surgery); ATTEND Thoracic Surgery (Cardiothoracic Vascular Surgery)
PROC: B24BZZ4 Ultrasonography of Heart with Aorta, Transesophageal (ICD-10-PCS; 2020-12-23)
PROC: 02RF38Z Replacement of Aortic Valve with Zooplastic Tissue, Percutaneous Approach (ICD-10-PCS; principal; 2020-12-23 12:00)
PROC: BW281ZZ Computerized Tomography (CT Scan) of Head using Low Osmolar Contrast (ICD-10-PCS; 2020-12-27)
DX: I35.0 Nonrheumatic aortic (valve) stenosis (principal); I63.411 Cerebral infarction due to embolism of right middle cerebral artery; I31.3 Pericardial effusion (noninflammatory); E11.9 Type 2 diabetes mellitus without complications; E78.5 Hyperlipidemia, unspecified; I10 Essential (primary) hypertension; Z20.822 Contact with and (suspected) exposure to COVID-19; Z79.01 Long term (current) use of anticoagulants; Z79.84 Long term (current) use of oral hypoglycemic drugs; Z86.73 Personal history of transient ischemic attack (TIA), and cerebral infarction without residual deficits; Z95.3 Presence of xenogenic heart valve; Z00.6 Encounter for examination for normal comparison and control in clinical research program
CPT/HCPCS: 0232T; 93306; 93308; 93312; 93325; Z7506; Z7508; 36415; 36600; 70450; 70496; 70498; 70544; 70551; 71045; 71046; 80048; 80053; 80061; 81003; 82330; 82435; 82803; 82947; 82948; 83036; 83735; 84100; 84132; 84295; 85018; 85025; 85347; 85384; 85610; 85730; 86885; 86900; 86901; 86920; 87081; 92508; 92616; 93005; 94002; 94003; 94760; 97110; 97116; 97162; 97164; 97530; A4618; A6258; A6402; A6449; A7000; A7048; C1713; C1751; C9113; G0378; J0690; J1100; J1265; J1644; J1815; J2001; J2060; J2150; J2250; J2270; J2405; J2704; J2720; J2930; J3370; J3475; J3480; J3490; J7030; J7040; J7050; J7120; P9045; P9047; Q9967; U0003

== ENCOUNTER → 2021-01-02 | Outpatient (CLI) | payer BC ==
[~2021-01-02] MED LIST changes: +ASPI-1071 PO; +HYDR-3965 PO; +HYDR-3972 PO; -LISI10TA27 PO; +LOP25T PO; -LORazepam 2 mg/ml vial IV PRN; +WARF4TAB69 PO; -ceFAZolin 1000mg inj ONE; -cefazolin/dext.iso 2gm/100ml 100 ML IV ONE; -dextrose 50%-water 50ml dispensing syringe IV PRN; -famotidine 20mg tablet PO ONE; -gabapentin 400mg capsule PO ONE; -insulin regular, human inj. 100 UNITS in normal saline 100ml IV IV SCH; -metoprolol tartrate 12.5mg (1/2 tablet) PO ONE; -mupirocin 2% nasal ointment 1gm UD NS ONE; -ringers solution, lacted 1,000 ML IV SCH; -vancomycin 1,500 MG in NS 300ml IV soln IV ONE
== END | disposition home or self-care (01) ==
LOC: LAB 10:57
PROVIDERS: ATTEND Thoracic Surgery (Cardiothoracic Vascular Surgery)
DX: I63.9 Cerebral infarction, unspecified (principal); Z95.2 Presence of prosthetic heart valve
CPT/HCPCS: 36415; 85610